=== PATIENT | female | born 1970 ===

== ENCOUNTER → 2021-08-02 | Outpatient (CLI) | payer OTHER ==
--- NOTE | 2021-08-03 10:51 | RAD ---
EXAM: XR LUMBAR SPINE 2-3V 08/02/2021 11:04 AM CLINICAL INDICATION: Lower back COMPARISON: None TECHNIQUE: 2 views of the lumbar spine FINDINGS: There 5 nonrib-bearing lumbar vertebral bodies. No acute fracture. Alignment is normal. Th ere is mild disc space narrowing with small anterior osteophytes at L2-L3. Tiny anterior osteophytes at the remaining levels. No significant facet arthrosis. IMPRESSION: Mild degenerative disc disease, greatest at L2-L3. Electronically signed by: Marci Fallon MD (08/03/2021 10:48 AM) [id number]
== END ==
LOC: PF 10:16
PROVIDERS: ATTEND Family Medicine
DX: Z02.71 Encounter for disability determination (principal); M51.36 Other intervertebral disc degeneration, lumbar region; M48.061 Spinal stenosis, lumbar region without neurogenic claudication; M25.78 Osteophyte, vertebrae
CPT/HCPCS: 72100; 94010